=== PATIENT | female | born 1995 | race Two or more races ===

== ENCOUNTER 2020-06-15 10:09 | Inpatient (IN) | payer OTHER ==
[~2020-06-15] VITALS: Ht 160 cm; Wt 56.2 kg
[2020-06-15] MEDS ORDERED: LANTUS SOL100 UNIT/1 SUBCUTANEO (10:23)
[2020-06-15] MEDS ORDERED: HUMALOG100 UNIT/2 SUBCUTANEO (10:23)
== END 2020-06-17 08:14 | disposition home or self-care (01) | DRG 638 ==
LOC: ER 10:09 → ICU-2 18:31 → SEC-K 06-16 15:32 → MEDJ 06-16 15:54 → SEC-K 06-16 20:53
PROVIDERS: ADMIT Internal Medicine; ATTEND Internal Medicine
PROC: 4A033R1 Measurement of Arterial Saturation, Peripheral, Percutaneous Approach (ICD-10-PCS; 2020-06-15)
PROC: 3E0F7SF Introduction of Other Gas into Respiratory Tract, Via Natural or Artificial Opening (ICD-10-PCS; principal; 2020-06-16)
DX: E10.10 Type 1 diabetes mellitus with ketoacidosis without coma (principal); R65.10 Systemic inflammatory response syndrome (SIRS) of non-infectious origin without acute organ dysfunction; E87.3 Alkalosis; D72.828 Other elevated white blood cell count; E86.0 Dehydration; Z20.822 Contact with and (suspected) exposure to COVID-19; Z79.4 Long term (current) use of insulin

== ENCOUNTER 2022-01-05 15:24 | Emergency (ER) | payer OTHER ==
[~2022-01-05] VITALS: Ht 160 cm; Wt 54.9 kg
[~2022-01-05 15:24] MED LIST: HUMALOG100 UNIT/2 SUBCUTANEO; LANTUS SOL100 UNIT/1 SUBCUTANEO
[2022-01-05] MEDS ORDERED: LATANOPROST2.5 ML (15:35)
== END 2022-01-05 19:28 | disposition home or self-care (01) ==
LOC: ER 15:24
DX: L02.511 Cutaneous abscess of right hand (principal); S60.452A Superficial foreign body of right middle finger, initial encounter; X58.XXXA Exposure to other specified factors, initial encounter; Y93.9 Activity, unspecified; Y92.9 Unspecified place or not applicable; Y99.9 Unspecified external cause status

== ENCOUNTER → 2022-06-17 | Emergency (ER) | payer OTHER ==
[~2022-06-17] VITALS: Ht 160 cm; Wt 54.4 kg
[~2022-06-17] MED LIST changes: +LATANOPROST2.5 ML
== END | disposition left against medical advice (07) ==
LOC: ER 14:16
DX: G43.829 Menstrual migraine, not intractable, without status migrainosus (principal); Z88.0 Allergy status to penicillin; Z88.2 Allergy status to sulfonamides; E11.9 Type 2 diabetes mellitus without complications; Z79.4 Long term (current) use of insulin

== ENCOUNTER 2022-08-03 18:29 | Emergency (ER) | payer OTHER ==
[~2022-08-03] VITALS: Ht 160 cm; Wt 52.2 kg
== END 2022-08-03 21:00 | disposition home or self-care (01) ==
LOC: ER 18:29
DX: E11.649 Type 2 diabetes mellitus with hypoglycemia without coma (principal); Z79.4 Long term (current) use of insulin; Z88.2 Allergy status to sulfonamides

== ENCOUNTER 2023-04-18 18:20 | Emergency (ER) | payer OTHER ==
[~2023-04-18] VITALS: Ht 154.9 cm; Wt 49.0 kg
== END 2023-04-18 22:10 | disposition home or self-care (01) ==
LOC: ER 18:20
DX: L60.0 Ingrowing nail (principal); Z88.0 Allergy status to penicillin; Z88.8 Allergy status to other drugs, medicaments and biological substances; E10.9 Type 1 diabetes mellitus without complications; Z79.4 Long term (current) use of insulin

== ENCOUNTER 2024-03-23 21:25 | Emergency (ER) | payer OTHER ==
[~2024-03-23] VITALS: Ht 160 cm; Wt 50.8 kg
[2024-03-23] MEDS ORDERED: LEVOTHYROXINE25 MCG (21:54)
[2024-03-23] MEDS ORDERED: KETOROLAC TROMETHAMINE 60 MG VIAL IM ONE (22:45)
== END 2024-03-23 23:48 | disposition home or self-care (01) ==
LOC: ER 21:27
DX: M79.672 Pain in left foot (principal); E03.8 Other specified hypothyroidism; E11.9 Type 2 diabetes mellitus without complications; Z79.4 Long term (current) use of insulin; Z88.0 Allergy status to penicillin

== ENCOUNTER 2024-04-29 09:34 | Emergency (ER) | payer OTHER ==
[~2024-04-29] VITALS: Ht 160 cm; Wt 50.8 kg
[~2024-04-29 09:34] MED LIST changes: +LEVOTHYROXINE25 MCG
[2024-04-29 10:33] VITALS: BP 120/72; O2SAT 100
== END 2024-04-29 12:24 | disposition home or self-care (01) ==
LOC: ER 09:36
DX: M79.645 Pain in left finger(s) (principal); W22.8XXA Striking against or struck by other objects, initial encounter; Y93.89 Activity, other specified; Y92.013 Bedroom of single-family (private) house as the place of occurrence of the external cause; Z88.0 Allergy status to penicillin; Z88.6 Allergy status to analgesic agent

== ENCOUNTER 2024-11-02 13:16 | Emergency (ER) | payer OTHER ==
[~2024-11-02] VITALS: Ht 160 cm; Wt 50.8 kg
[2024-11-02] MEDS ORDERED: METHYLPREDNISOLONE SOD SUCC 125 MG VIAL IV ONE (16:15)
[2024-11-02] MEDS ORDERED: METHYLPREDNISOLONE SOD SUCC 125 MG VIAL ONE (16:16)
[2024-11-02 16:40] LABS: BASO % 0.7 % (0.1-1.2); EOS # 0.08 (0.04-0.54); EOS % 1.1 % (0.7-7.0); HEMATOCRIT 36.2 % (34.1-44.9); HEMOGLOBIN 12.1 g/dL (11.2-15.7); LYMPH # 2.32 (1.18-3.74); LYMPH % 31.3 % (19.3-53.1); MEAN CORPUSCULAR HEMOGLOBIN 30.5 pg (25.6-32.2); MONO # 0.45 (0.24-0.82); MONO % 6.1 % (4.7-12.5); NEUT % 60.5 % (34.0-71.1); PLATELET COUNT 339 K/uL (163-369); RED BLOOD COUNT 3.97 M/uL (3.93-5.22); RED CELL DISTRIBUTION WIDTH 11.8 % (11.6-14.4)
== END 2024-11-02 17:29 | disposition home or self-care (01) ==
LOC: ER 13:21
PROVIDERS: General Practice
DX: T78.40XA Allergy, unspecified, initial encounter (principal); Z88.0 Allergy status to penicillin; Z88.6 Allergy status to analgesic agent; Z88.1 Allergy status to other antibiotic agents

== ENCOUNTER 2024-12-09 21:30 | Emergency (ER) | payer OTHER ==
[~2024-12-09] VITALS: Ht 160 cm; Wt 50.8 kg
[2024-12-10 00:26] LABS: BASO % 0.9 % (0.1-1.2); EOS # 0.09 (0.04-0.54); EOS % 1.1 % (0.7-7.0); LYMPH # 3.29 (1.18-3.74); LYMPH % 40.9 % (19.3-53.1); MEAN PLATELET VOLUME 10.60 fl (9.4-12.4); MONO # 0.70 (0.24-0.82); MONO % 8.7 % (4.7-12.5); NEUT # 3.89 (1.56-6.13); NEUT % 48.3 % (34.0-71.1); RED CELL DISTRIBUTION WIDTH 12.1 % (11.6-14.4)
[2024-12-10 01:16] LABS: ALT/SGPT 21.0 U/L (12-78); AST/SGOT 15.0 U/L (15-37); BILIRUBIN TOTAL 0.27 mg/dL (0.3-1.2); BUN CREA RATIO 14.0 (7.0-25.0); CREATININE SERUM 0.65 mg/dL (0.55-1.02); GFR 107.02; GLOBULINA 3.7 G/DL (2.4-3.5); GLUCOSE FASTING 62.0 mg/dL (65-100); OSMOLALITY SERUM 278.0 MOSM/KG (275-295); TSH 3.83 uIU/mL (0.358-3.74)
[2024-12-10] MEDS ORDERED: DEXTROSE 5 % AND 0.9 % NACL 500 ML IV STA (01:23)
== END 2024-12-10 01:53 | disposition home or self-care (01) ==
LOC: ER 21:30
PROVIDERS: General Practice
DX: E16.0 Drug-induced hypoglycemia without coma (principal); T38.3X5A Adverse effect of insulin and oral hypoglycemic [antidiabetic] drugs, initial encounter; Z88.0 Allergy status to penicillin; Z88.6 Allergy status to analgesic agent